=== PATIENT | male | born 1995 | race Caucasian/White ===

== ENCOUNTER 2021-08-12 20:00 | Emergency (ER) | payer OTHER, SELFPAY ==
[2021-08-12 20:01] VITALS: BP 131/81; PULSE 105; RESP 18; TEMP 37.2; O2SAT 95; BMI 32.2
[2021-08-12 20:59] VITALS: BP 131/81; PULSE 105; RESP 18; TEMP 37.2; O2SAT 95
--- NOTE | 2021-08-12 21:12 | EX.ED.VIS.UR ---
HPI HPI - URI History of Present Illness Chief Complaint: Weakness Informant: patient Onset/Context/Timing Onset: Yesterday Context: Gradual Onset Timing: Continuous Current Severity: Mild Maximum Severity: Mild Associated Symptoms Associated Symptoms: Positive for Headache, Myalgias and Diarrhea; Negative for Nausea and Vomiting Narrative Narrative: 25-year-old male noticing a past medical history. Prior tonsillectomy. States he just has not felt well for the last couple days. Generalized weakness. Mild diarrhea mild headache. Mild nonproductive cough. No fever. No chills. Prior similar symptoms: Yes Recent Illness/Hospitalization: No ROS ROS ED Review of Systems ROS Unobtainable: Denies due to encephalopathy Constitutional Constitutional ED: Denies fever(s) or subjective Eyes Eyes: Denies blurry vision or change in vision ENT ENT ED: Reports ear pain; Denies sore throat Cardiovascular Cardiovascular: Reports chest pain Respiratory/Chest Respiratory/Chest: Reports cough; Denies dyspnea Gastrointestinal Gastrointestinal: Reports diarrhea; Denies abdominal pain, nausea or vomiting Genitourinary Genitourinary ED: Denies dysuria or hematuria Musculoskeletal Musculoskeletal: Reports myalgias; Denies back pain or neck pain Integumentary Denies abscess or rash Neurologic Neurologic: Reports headache(s) Psychiatric Psychiatric: Denies anxiety or depression Endocrine Endocrinology: Denies polyuria Hematologic/Lymphatic Hematologic/Lymphatic: Denies easy bruising Allergic/Immunologic Allergic/Immunologic ED: Denies urticaria PFSH PFSH no medical history Home Medications dexamethasone [Decadron] 6 mg PO DAILY 6 Days #6 tab 08/12/21 [Rx Last Taken Unknown] Allergy/AdvReac Type Severity Reaction Status Date / Time No Known Allergies Allergy Verified 08/12/21 20:01 Social History Smoking Status: Unknown if ever smoked EXAM Physical Exam Narrative Exam Narrative: 21 male no acute distress vital signs stable afebrile. Pulse ox 95% on room air no signs hypoxia. HEENT exam unremarkable. Moist mucous membranes. Posterior pharynx normal. Neck nontender no lymphadenopathy. Lungs clear to auscultation bilaterally. Heart regular rhythm rate about 100 no murmur. Chest wall nontender abdomen soft nontender normal bowel sounds no peritoneal signs. Moving all 4 extremities. Neurovascular intact. Calves nontender without edema or cords. Back nontender. Skin unremarkable. Neurologic exam normal. Const Vital Signs: 08/12/21 20:01 08/12/21 20:59 Temperature 99.0 F 99.0 F Temperature Source Temporal Temporal Pulse Rate 105 H 105 H Respiratory Rate 18 18 Blood Pressure 131/81 H 131/81 H Blood Pressure Mean 97 97 Pulse Ox 95 95 Oxygen Delivery Method Room Air Room Air Positive well nourished and well developed; Negative for obese, cachectic or contractures General Appearance ED: well developed and NAD; Negative for cachectic, contractures, cyanotic, diaphoretic or pallor Nutritional Appearance: Negative for cachectic or obese HEENT Reports moist mucous membranes normocephalic and atraumatic; Negative for scalp tenderness Face and Sinus: Negative for sinus tenderness or facial tenderness External Ear: external ears normal Eyes PERRL and EOMs intact bilaterally General Eye ED: Negative for pale conjunctiva or scleral icterus Neck no lymphadenopathy, supple, no meningeal signs and no JVD General: Negative for anterior neck swelling Resp normal respiratory effort and clear to auscultation bilaterally Auscultation: Negative for rales, rhonchi or wheezes Cardio no murmurs; Negative for S1 normal heart sound or S2 normal heart sound Rate: regular rate Rhythm: regular rhythm GI non-tender, non-distended and no masses Inspection: Negative for abdominal distention Auscultation: normoactive bowel sounds Palpation: soft; Negative for tender or guarding Back/Spine no CVA tenderness and normal ROM General Back: Negative for CVA tenderness Cervical Spine: Negative for cervical spine tenderness Extremity normal to inspection and full ROM General Extremety ED: Negative for cyanosis or tenderness General Extremity: Negative for cyanosis Neuro oriented x3 Sensorium / Orientation: alert, oriented to person, oriented to place and oriented to time; Negative for orientation impaired, lethargic or stuporous Psych mental status grossly normal Skin General Skin Exam: Negative for jaundice or pallor Lesions: no lesions Rashes: no rashes MDM MDM MDM Narrative Medical decision making narrative: None male suspect viral syndrome. He has had atypical noncardiac sounding chest pain. Patient most likely has Covid which is being tested for. Repeat exam patient doing well at 9:30 PM. Will be started on Decadron first dose given in ER. For the next 7 days. Lab Data Attestation: I reviewed the patient's lab results. Lab results narrative: Rapid Covid is positive. Rhythm Strip Rhythm Strip: Sinus Rhythm Rate: 94 Ectopy: None EKG Initial EKG: Attestation: I personally reviewed and interpreted this EKG as follows: Interpretation: Sinus Rhythm and No Acute Injury Pattern Comments: Normal sinus rhythm rate of 94 no acute signs of MN or ischemia. Prior EKG tracings: not available for review Discharge Plan Triage Chief Complaint: Weakness ED Provider: Donell Chadwick Dx/Rx/DC Orders Clinical Impression: COVID-19 Instructions: Human Coronaviruses Prescriptions: New dexamethasone [Decadron] 6 mg tablet 6 mg PO DAILY 6 Days Qty: 6 RF: 0 Primary Care Provider: Care Physician,No Primary Referrals: Yudi Adame MD [STAFF PHYSICIAN] - 1 Week if not improving Care Physician,No Primary [Primary Care Provider] - Activity Restrictions/Additional Instructions: Plenty of fluids and rest. Tylenol Motrin as needed. Follow-up if not improving. Disposition Disposition: Home, Self Care
--- NOTE | 2021-08-12 21:31 | EKG12_ITS ---
Test Reason : CP Blood Pressure : / mmHG Vent. Rate : 094 BPM Atrial Rate : 094 BPM P-R Int : 144 ms QRS Dur : 086 ms QT Int : 334 ms P-R-T Axes : 058 009 033 degrees QTc Int : 417 ms Normal sinus rhythm Normal ECG Confirmed by MARIAM NEGRO MD ([id number]), commercial production editor CLAUDIA BRUCE ([id number]) on 08/14/2021 1:59:35 PM Referred By: MARRY Confirmed By:MARIAM NEGRO MD
[2021-08-12] MEDS: dexAMETHasone 4 MG Tablet 6 MG PO (21:40)
[2021-08-12 21:41] VITALS: BP 129/83; PULSE 87; RESP 16; O2SAT 96
== END 2021-08-12 21:42 | disposition home or self-care (01) ==
PROVIDERS: Emergency Provider Emergency Medicine
DX: U07.1 COVID-19 (principal)
CPT/HCPCS: 87426; 93005; 99284; A4216